=== PATIENT | male | born 1965 | race Two or more races ===

== ENCOUNTER 2018-04-06 13:45 | Inpatient (IN) | payer MEDICAID, OTHER ==
[~2018-04-06] VITALS: Ht 175.3 cm; Wt 79.5 kg
[2018-04-06 14:44] LABS: Basophils # (auto) 0 uL; Basophils % (auto) 0.2 % (0.0-2.0); Eosinophils # (auto) 0.1 uL; Eosinophils % (auto) 0.5 % (0.0-7.0); Hematocrit 47.6 % (41.0-53.0); Hemoglobin 16.2 g/dL (13.5-17.5); Lymphocytes % (auto) 15.3 % (10.0-50.0); Mean Corpuscular Hemoglobin 30.1 pg (28.0-32.0); Mean Corpuscular Volume 88.5 fL (80.0-100.0); Monocytes # (auto) 0.8 uL; Monocytes % (auto) 5.9 % (0.0-12.0); Neutrophils # (auto) 10.2 uL; Neutrophils % (auto) 78.1 % (37.0-80.0); Nucleated Red Blood Cells % 0.1 %; Platelet Count (auto) 266 10^3/uL (140-450); Red Blood Cells 5.38 10^6/uL (4.5-5.90); Red Cell Distribution Width 13.4 % (11.8-14.3); White Blood Cell 13.1 10^3/uL (4.4-10.8)
[2018-04-06 14:59] LABS: Partial Thromboplastin Time 32.2 sec (23.78-33.04); Prothrombin Time 10.7 sec (9.27-12.13)
[2018-04-06 15:05] LABS: Calcium 8.6 mg/dL (8.5-10.1); Magnesium 2.1 mg/dL (1.6-2.6); Potassium 4.6 mmol/L (3.5-5.1)
[2018-04-06 15:11] LABS: BUN/Creatinine Ratio 14.1; Bilirubin, Total 0.6 mg/dL (0.2-1.0); Total Protein 7.5 g/dL (6.4-8.2)
[2018-04-06] MEDS ORDERED: ONDANSETRON HCL 4 MG/2 ML VIAL IV ONE (15:45)
[2018-04-06] MEDS ORDERED: MORPHINE SULFATE 4 MG/ML SYR/VIAL IV ONE (15:45)
[2018-04-06] MEDS ORDERED: MORPHINE SULF INJ 2 MG/ML SYRINGE 1ML IV PRN ×2 (17:30→17:45)
[2018-04-06] MEDS ORDERED: MORPHINE SULFATE 4 MG/ML SYR/VIAL IV PRN (17:30)
[2018-04-06] MEDS ORDERED: DEXTROSE (50%) 50ML SYRG IV PRN (17:30)
[2018-04-06] MEDS ORDERED: LISINOPRIL 10 MG TAB PO ONE (17:30)
[2018-04-06] MEDS ORDERED: ONDANSETRON HCL 4 MG/2 ML VIAL IV PRN (17:30)
[2018-04-06] MEDS ORDERED: NITROGLYCERIN 0.4MG/HR TOPICAL PATCH TD ONE (17:30)
[2018-04-06] MEDS ORDERED: ASPirin 81 mg TAB PO ONE (17:30)
[2018-04-06] MEDS ORDERED: NITROGLYCERIN 0.4 MG SL TAB SL PRN (17:30)
[2018-04-06] MEDS ORDERED: HYDROcodone-ACET 5/325MG TAB PO PRN (17:30)
[2018-04-06 17:59] LABS: Cholesterol 210 mg/dL (< 200); Triglycerides 161 mg/dL (< 150)
[2018-04-06] MEDS ORDERED: ENOXAPARIN SOD 100 MG/1 ML SYRINGE SC ONE (18:00)
[2018-04-06 18:01] LABS: HDL Cholesterol 39 mg/dL (40-59); LDL Cholesterol 154 mg/dL (< 100)
[2018-04-06 20:00] VITALS: BP 159/60
[2018-04-06] MEDS: ACCU-CHEK COMFORT CURVE STRIP VI SCH ×2 (20:00→23:50)
--- NOTE | 2018-04-06 20:00 | NUR ---
Telemetry admit from ER TONG MOORE admitted to Telemetry unit after SBAR received. Patient oriented to PRIETO GILLETTE, RN primary RN, unit, room, bed, and unit policies regarding patient care and visiting hours. at bedside. Patient now on continuous telemetry monitoring, tele box # 10 and telemetry reading on arrival to unit is sb 47. Patient weighed by bedscale and encouraged to call if they need something. All questions and concerns addressed, patient verbalized understanding. 2 X side rails up. Bed locked and in lowest postion, call light within reach, all information given in primary language - Thai. Will continue to monitor pt. Note:
[2018-04-06] MEDS: InsuLIN REG 1unit/0.01ml Soln (100units/ml) SC SCH ×2 (20:25→23:51)
--- NOTE | 2018-04-06 20:47 | NUR ---
MRSA SAMPLE SENT TO LAB
[2018-04-06 22:00] VITALS: BP 134/60
--- NOTE | 2018-04-06 23:50 | NUR ---
PT ROUNDS PT stated feel sweaty and trembling, check Temp 98.5, Blood sugar check 79. Gave pt orange Juice with bonny crackers. will reasses pt and will page hospitalist
--- NOTE | 2018-04-07 00:24 | NUR ---
HOSPITALIST ON PHONE Informed hospitalist in regards to change in patient, Informed that pt is in moderated sliding scale. Informed that at 1999 blood sugar was 252 gave 9 units of regular insulin, Recheck Blood sugars as he is q4hrs and recheck was 79, and pt reported diaphoretic and shaky Per Telephone order read back patients to be on mild sliding scale.
[2018-04-07] MEDS ORDERED: DEXTROSE (50%) 50ML SYRG IV PRN (00:30)
[2018-04-07] MEDS ORDERED: INFLUENZA QUAD 2018-2019 0.5 ML SYRG IM ONE (01:00)
[2018-04-07] MEDS ORDERED: PNEUMOCOCCAL VACC POLYS 25 MCG/0.5 ML VIAL IM ONE (01:00)
[2018-04-07] MEDS ORDERED: METF500T PO (01:16)
[2018-04-07] MEDS ORDERED: LISI10TA6 PO (01:16)
[2018-04-07] MEDS: InsuLIN REG 1unit/0.01ml Soln (100units/ml) SC SCH ×6 (03:33→23:52)
[2018-04-07] MEDS: ACCU-CHEK COMFORT CURVE STRIP VI SCH ×6 (03:33→23:52)
[2018-04-07 05:00] VITALS: BP 121/54
[2018-04-07 06:31] LABS: Basophils # (auto) 0 uL; Basophils % (auto) 0.3 % (0.0-2.0); Eosinophils # (auto) 0.1 uL; Eosinophils % (auto) 1.5 % (0.0-7.0); Hematocrit 44.3 % (41.0-53.0); Hemoglobin 15.4 g/dL (13.5-17.5); Lymphocytes # (auto) 2.6 uL; Lymphocytes % (auto) 29.3 % (10.0-50.0); Mean Corpuscular Hemoglobin 30.6 pg (28.0-32.0); Mean Corpuscular Hgb Conc. 34.7 g/dL (32.0-36.0); Mean Corpuscular Volume 88.1 fL (80.0-100.0); Monocytes # (auto) 0.7 uL; Monocytes % (auto) 7.6 % (0.0-12.0); Neutrophils # (auto) 5.4 uL; Neutrophils % (auto) 61.3 % (37.0-80.0); Platelet Count (auto) 255 10^3/uL (140-450); Red Blood Cells 5.03 10^6/uL (4.5-5.90); Red Cell Distribution Width 13.3 % (11.8-14.3); White Blood Cell 8.7 10^3/uL (4.4-10.8)
[2018-04-07 07:01] LABS: Calcium 8.6 mg/dL (8.5-10.1)
[2018-04-07 07:03] LABS: BUN/Creatinine Ratio 16.4
--- NOTE | 2018-04-07 08:00 | NUR ---
Opening shift note: Patient A/O x-4, sitting up in bed resting quietly and not exhibiting any s/s of distress nor discomfort at this time. Patient encouraged to call if he needs anything.
[2018-04-07 09:00] VITALS: BP 127/64
[2018-04-07] MEDS: NITROGLYCERIN 0.4MG/HR TOPICAL PATCH TD SCH (10:00)
[2018-04-07] MEDS: LISINOPRIL 20 MG TAB PO SCH (10:00)
[2018-04-07] MEDS: ASPirin 81 mg TAB PO SCH (10:00)
[2018-04-07 13:00] VITALS: BP 125/68
[2018-04-07 17:00] VITALS: BP 128/67
--- NOTE | 2018-04-07 19:00 | NUR ---
Closing Shift Note: Patient is A/O x-4, sitting up in bed with at bedside. Patient is not exhibiting any s/s of distress nor discomfort. Care endorsed to Gilbert.
--- NOTE | 2018-04-07 19:10 | NUR ---
Opening Shift Note Assumed care of patient, awake and alert. at bedside, No S/S of distress/SOB. PT complains of pain 10/10 SNYDER, will medicate per MD order. Instructed on POC and to call for assist PRN, will continue to monitor for changes Q1hr and PRN. Informed in regards to latest updates, informed in regards to being NPO after midnight due to stress test. PT understood. will continue to monitor pt.
[2018-04-07 21:40] VITALS: BP 121/55
[2018-04-07] MEDS: ATORVASTATIN 20 MG TAB PO SCH (21:43)
[2018-04-08] MEDS: InsuLIN REG 1unit/0.01ml Soln (100units/ml) SC SCH ×5 (04:00→20:58)
[2018-04-08] MEDS: ACCU-CHEK COMFORT CURVE STRIP VI SCH ×5 (04:28→20:58)
--- NOTE | 2018-04-08 04:40 | NUR ---
IV insertion IV access obtained, via clean sterile technique by inserting 20 gauge catheter at after attempt(s). IV secured properly. No trauma to site. Patient tolerated well. NOTE:
[2018-04-08 05:47] VITALS: BP 129/61
[2018-04-08 08:22] VITALS: BP 111/53
[2018-04-08] MEDS ORDERED: ADENOSINE 73 MG in GIVE UN-DILUTED 0 ML IV STA (08:31)
[2018-04-08 09:50] VITALS: BP 144/73
[2018-04-08] MEDS: NITROGLYCERIN 0.4MG/HR TOPICAL PATCH TD SCH (10:00)
[2018-04-08] MEDS: ASPirin 81 mg TAB PO SCH (10:37)
[2018-04-08] MEDS: LISINOPRIL 20 MG TAB PO SCH (10:38)
[2018-04-08 12:34] VITALS: BP 148/81
--- NOTE | 2018-04-08 13:30 | NUR ---
Spoke to Hospitalist MD Leyva aware of patients status, labs, VS. Awaiting cardiolite as ordered. Will cont care
[2018-04-08 16:34] VITALS: BP 155/70
--- NOTE | 2018-04-08 17:15 | NUR ---
Urine sent as ordered
[2018-04-08 18:11] LABS: Alcohol, Urine < 3.0 mg/dL (0-5); Amphetamine Screen, Urine NEGATIVE (NEGATIVE); Barbiturate Scree,Urine NEGATIVE (NEGATIVE); Benzodiazephine Screen, Urine NEGATIVE (NEGATIVE); Cannabinoid Screen, Urine POSITIVE (NEGATIVE); Cocaine Screen, Urine NEGATIVE (NEGATIVE); Opiate Scree,Urine NEGATIVE (NEGATIVE); Phencyclidine Screen, Urine NEGATIVE (NEGATIVE)
[2018-04-08 18:26] LABS: Urine Bacteria NONE SEEN /hpf (None Seen); Urine Blood Negative /uL (Negative); Urine Mucus FEW (None Seen); Urine Specific Gravity 1.019 (1.001-1.035); Urine WBC <1 /hpf (0 - 3)
--- NOTE | 2018-04-08 19:00 | NUR ---
Patient care endorsed endorsed care to Wan dsouza
--- NOTE | 2018-04-08 19:35 | NUR ---
Opening Shift Note Assumed care of patient, awake and alert x4. Turkish speaking understands some Kenyan. No S/S of distress/SOB on room air. Denies pain at this time. Bed locked in lowest position, call light within reach. Instructed on POC and to call for assist PRN, will continue to monitor for changes PRN.
[2018-04-08] MEDS: ATORVASTATIN 20 MG TAB PO SCH (20:58)
[2018-04-08 21:48] VITALS: BP 139/63
[2018-04-09] VITALS (7 sets, daily range): BP systolic 124–148; BP diastolic 68–76
[2018-04-09] MEDS: ACCU-CHEK COMFORT CURVE STRIP VI SCH ×7 (00:29→23:49)
[2018-04-09] MEDS: InsuLIN REG 1unit/0.01ml Soln (100units/ml) SC SCH ×7 (04:13→23:50)
--- NOTE | 2018-04-09 07:56 | NUR ---
PATIENT ROUNDS PATIENT LYING IN BED, NO DISTRESS NOTED, BED IN LOWEST POSITION, SIDE RAILS UP X2, CALL LIGHT WITHIN REACH. ALL QUESTIONS AND CONCERNS ADDRESSED. WILL CONTINUE TO MONITOR AND INITIATE PLAN OF CARE. STUDENT APOLINAR FOLEY ASSISTING IN POC.
[2018-04-09] MEDS: NITROGLYCERIN 0.4MG/HR TOPICAL PATCH TD SCH (09:34)
[2018-04-09] MEDS: ASPirin 81 mg TAB PO SCH (09:46)
[2018-04-09] MEDS: LISINOPRIL 20 MG TAB PO SCH (09:47)
--- NOTE | 2018-04-09 10:15 | NUR ---
David HAM AT BEDSIDE TO EXPLAIN POC WITH PATIENT AND FAMILY. PLAN FOR [facility] TOMORROW Signed: 04/09/18 at 1330 by SN ANA <Co-Signature Required> Co-Signed: 04/09/18 at 1330 by Breanna Mcgrath RN
--- NOTE | 2018-04-09 19:30 | NUR ---
OPENING NOTES RECEIVED REPORT FROM DAYSHIFT NURSE. PT IS AWAKE AND ALERT X 4 WITH NO S/S OF DISTRESS NOR PAIN WHILE ON ROOM AIR. BED IS IN LOWEST POSITION WITH THE BRAKES LOCKED AND SIDE RAILS X 2. CALL LIGHT IS WITHIN REACH. WILL CONTINUE TO MONITOR.
[2018-04-09] MEDS: ATORVASTATIN 20 MG TAB PO SCH (20:28)
[2018-04-10] MEDS: ACCU-CHEK COMFORT CURVE STRIP VI SCH ×5 (03:54→21:36)
[2018-04-10] MEDS: InsuLIN REG 1unit/0.01ml Soln (100units/ml) SC SCH ×5 (03:58→21:56)
[2018-04-10 05:00] VITALS: BP 133/76
[2018-04-10 09:00] VITALS: BP 118/67
[2018-04-10] MEDS: NITROGLYCERIN 0.4MG/HR TOPICAL PATCH TD SCH (10:00)
--- NOTE | 2018-04-10 10:03 | NUR ---
assessment Per ss consult information on advanced directives and hard to obtain refill on meds. I have provided patient with an advanced directive and [employer] prescription drug savings card. Addendum: 04/13/18 at 1004 by Sarah Beth Vasquez Amended: Links added.
[2018-04-10] MEDS: ASPirin 81 mg TAB PO SCH (10:12)
[2018-04-10] MEDS: LISINOPRIL 20 MG TAB PO SCH (10:13)
--- NOTE | 2018-04-10 11:30 | NUR ---
Patient off of unit for procedure
[2018-04-10] MEDS ORDERED: IOHEXOL 350 MG/ML 100ML IJ ONE (11:57)
[2018-04-10] MEDS ORDERED: LIDOCAINE 2%HCL (LOCAL ANESTH.) INJ 20ML MDV ONE (11:57)
[2018-04-10] MEDS ORDERED: IODIXANOL 320MG/ML 100ML BTL IV ONE (12:13)
--- NOTE | 2018-04-10 12:16 | NUR ---
NUTRITION ASSESSMENT NOTES Please refer to link notes of nutrition screen form filed under the intervention section of the plan of care for further details. Est. Needs: 1750 kcal to 2200 kcal (20-25 kcal/kgBW), 70 gms to 87 gms pro (0.8-1.0 gms/kgBW). Will continue to monitor pertinent labs and reassess nutrient need prn Thank you. Addendum: 04/10/18 at [address] Amended: Links added.
[2018-04-10] MEDS ORDERED: SODIUM CHL 0.9% 0 ML ONE (12:42)
[2018-04-10] MEDS ORDERED: VERAPAMIL 2.5MG/ML INJ 2ML VIAL IV ONE (12:42)
[2018-04-10] MEDS ORDERED: ANGIOMAX 250 MG VIAL IV ONE (12:42)
[2018-04-10] MEDS ORDERED: fentaNYL CITRATE 100 MCG/2 ML VL ONE (12:42)
[2018-04-10] MEDS ORDERED: MIDAZOLAM HCL 1MG/1ML-2 ML VIAL ONE (12:42)
[2018-04-10] MEDS ORDERED: HEPARIN SODIUM (PORCINE) 5000 UNITS/ML 1ML VIAL ONE (13:06)
--- NOTE | 2018-04-10 14:30 | NUR ---
Patient returned from procedure. Left radial incision and vascband observed. 2 liters of air removed at this time. Small amount of sanguineous fluid observed under the vasband. Will continue to monitor. Addendum: 04/10/18 at 1617 by ISAAC CLEARY RN correction: 2 mL not 2 Liters removed
--- NOTE | 2018-04-10 14:45 | NUR ---
2 mL of air removed from vascband Left radial incision and vascband observed. 2 ML of air removed at this time. Small amount of sanguineous fluid observed under the vasband. No additional bleeding observed. Will continue to monitor.
--- NOTE | 2018-04-10 15:15 | NUR ---
2 mL of air removed from vascband Left radial incision and vascband observed. 2 ML of air removed at this time. Small amount of sanguineous fluid observed under the vascband. No additional bleeding observed. Will continue to monitor.
--- NOTE | 2018-04-10 15:30 | NUR ---
2 mL of air removed from vascband Left radial incision and vascband observed. 2 ML of air removed at this time. Small amount of sanguineous fluid observed under the vascband. No additional bleeding observed. Will continue to monitor. Vascband removed at this time and dressing adhered.
[2018-04-10 17:00] VITALS: BP 135/97
--- NOTE | 2018-04-10 17:00 | NUR ---
Dressing on left wrist observed Dressing is clean, dry and intact. Patient educated to notify if any signs of bleeding occurs. Patient verbalized understanding. Will continue to monitor.
--- NOTE | 2018-04-10 19:30 | NUR ---
OPENING NOTES RECEIVED REPORT FROM DAYSHIFT NURSE. PT IS AWAKE AND ALERT X 4 WITH NO S/S OF DISTRESS NOR PAIN WHILE ON ROOM AIR. PT LEFT WRIST HAS AN INCISION FROM C PROCEDURE, WHICH IS CLEAN AND DRESSING INTACT. PATIENT HAS PULSE ON LEFT RADIAL. PT CLAIMS SOME TINGING AND NUMBNESS ON LEFT HAND BUT NO PAIN. BED IS IN LOWEST POSITION WITH THE BRAKES LOCKED AND SIDE RAILS X 2. CALL LIGHT IS WITHIN REACH. WILL CONTINUE TO MONITOR.
[2018-04-10 20:00] VITALS: BP 118/67
[2018-04-10] MEDS: ATORVASTATIN 20 MG TAB PO SCH (21:35)
[2018-04-10 22:00] VITALS: BP 140/73
[2018-04-11] MEDS: ACCU-CHEK COMFORT CURVE STRIP VI SCH ×7 (01:40→23:57)
[2018-04-11] MEDS: InsuLIN REG 1unit/0.01ml Soln (100units/ml) SC SCH ×7 (01:56→23:57)
[2018-04-11 05:00] VITALS: BP 125/62
--- NOTE | 2018-04-11 05:56 | NUR ---
CLOSING NOTES PT IS AWAKE AND ALERT X 4 WITH NO S/S OF DISTRESS NOR PAIN WHILE ON ROOM AIR. LT RADIAL PULSE IS PRESENT AND PATIENT CLAIMS NO TINGLING NOR NUMBNESS NOR PAIN. BED IS IN LOWEST POSITION WITH THE BRAKES LOCKED AND SIDE RAILS X 2. CALL LIGHT IS WITHIN REACH.
--- NOTE | 2018-04-11 08:00 | NUR ---
Opening Shift Note Assumed care of patient, awake and alert. No S/S of distress/SOB or pain. Instructed on POC and to call for assist PRN, will continue to monitor for changes Q1hr and PRN. Bed is in the lowest position and call light is within reach. Dressing on left wrist from left heart procedure is clean, dry and intact. Pulses are palpable.
[2018-04-11 09:20] VITALS: BP 129/76
[2018-04-11] MEDS: NITROGLYCERIN 0.4MG/HR TOPICAL PATCH TD SCH (10:00)
[2018-04-11] MEDS: ASPirin 81 mg TAB PO SCH (10:13)
[2018-04-11] MEDS: LISINOPRIL 20 MG TAB PO SCH (10:14)
[2018-04-11] MEDS ORDERED: SOD CHL 0.45% 1,000 ML IV SCH (11:00)
[2018-04-11 13:20] VITALS: BP 135/78
[2018-04-11] MEDS: ENOXAPARIN SOD 40 MG/0.4 ML SYRINGE SC SCH (16:21)
[2018-04-11 17:24] VITALS: BP 123/67
--- NOTE | 2018-04-11 19:40 | NUR ---
OPENING SHIFT NOTE RECEIVED REPORT FROM DAYSHIFT RN. PT RESTING COMFORTABLY IN BED. NO S/S OF DISTRESS OR SOB. NO PAIN NOTED OR REPORTED. PT A/O X4 AND AMBULATORY. UPDATED PT ON POC, VERBALIZED UNDERSTANDING. BED LOCKED IN LOW POSITION, CALL LIGHT WITHIN REACH. WILL CONTINUE TO MONITOR PT Q1HR AND PRN.
[2018-04-11] MEDS: ATORVASTATIN 20 MG TAB PO SCH (21:36)
[2018-04-11 22:00] VITALS: BP 132/67
[2018-04-12] MEDS: ACCU-CHEK COMFORT CURVE STRIP VI SCH ×3 (04:25→12:00)
[2018-04-12] MEDS: InsuLIN REG 1unit/0.01ml Soln (100units/ml) SC SCH ×3 (04:26→12:00)
[2018-04-12 05:00] VITALS: BP 151/88
[2018-04-12 07:07] LABS: BUN/Creatinine Ratio 15.5; Calcium 8.4 mg/dL (8.5-10.1); Potassium 4.2 mmol/L (3.5-5.1)
--- NOTE | 2018-04-12 07:47 | NUR ---
Opening Shift Note Assumed care of patient, awake and alert. No S/S of distress/SOB or pain. Instructed on POC and to call for assist PRN, will continue to monitor for changes Q1hr and PRN. Bed is in the lowest position and call light is within reach.
[2018-04-12 09:00] VITALS: BP 143/70
[2018-04-12] MEDS: ASPirin 81 mg TAB PO SCH (09:16)
[2018-04-12] MEDS: LISINOPRIL 20 MG TAB PO SCH (09:16)
[2018-04-12] MEDS: NITROGLYCERIN 0.4MG/HR TOPICAL PATCH TD SCH (09:16)
[2018-04-12] MEDS: ENOXAPARIN SOD 40 MG/0.4 ML SYRINGE SC SCH (09:16)
--- NOTE | 2018-04-12 12:30 | NUR ---
Discharge instructions given as ordered. Encourage to follow up with URGENT CARE IN 1- 2 WEEKS. USE COUPON GIVEN FOR DISCOUNT AT URGENT CARE. All questions and concerns addressed. Patient verbalized understanding. Medication reconciliation form completed and copy given to patient. NO Home medications held in Pharmacy, and NO needed vaccineS. IV removed with catheter intact, pressure dressing applied. Telemetry unit returned to [facility].
--- NOTE | 2018-04-12 12:40 | NUR ---
Patient taken to vehicle via wheelchair with all personal belongings, accompanied by staff and family member. No distress noted at time of departure.
[2018-04-12 12:57] VITALS: BP 152/78
== END 2018-04-12 12:40 | disposition home or self-care (01) | DRG 192 ==
LOC: ER 13:52 → TELE 17:28 → TELE-WESTW 19:58
PROVIDERS: ADMIT Nurse Practitioner Acute Care; ATTEND Internal Medicine
PROC: 4A023N7 Measurement of Cardiac Sampling and Pressure, Left Heart, Percutaneous Approach (ICD-10-PCS; principal; 2018-04-10)
PROC: B2111ZZ Fluoroscopy of Multiple Coronary Arteries using Low Osmolar Contrast (ICD-10-PCS; 2018-04-10)
DX: R07.89 Other chest pain (principal); E11.65 Type 2 diabetes mellitus with hyperglycemia; D72.829 Elevated white blood cell count, unspecified; F17.210 Nicotine dependence, cigarettes, uncomplicated; E78.5 Hyperlipidemia, unspecified; I10 Essential (primary) hypertension; R00.1 Bradycardia, unspecified; E66.9 Obesity, unspecified; Z91.14 Patient's other noncompliance with medication regimen; Z83.3 Family history of diabetes mellitus; Z79.84 Long term (current) use of oral hypoglycemic drugs; Z79.899 Other long term (current) drug therapy; Z82.49 Family history of ischemic heart disease and other diseases of the circulatory system; Z68.25 Body mass index [BMI] 25.0-25.9, adult
CPT/HCPCS: 36415; 71045; 71250; 80048; 80053; 80061; 80307; 81001; 82962; 83036; 83735; 83880; 84443; 84484; 85025; 85610; 85730; 86850; 86900; 86901; 87081; 90674; 93005; 93017; 93306; 96372; 96374; 96375; 99152; A6257; G0378; J0153; J1815; J2250; J2405; Q9967